=== PATIENT | male | born 1960 | race Caucasian/White ===

== ENCOUNTER → 2017-02-05 | Outpatient (CLI) | payer BC ==
[~2017-02-05] MED LIST: FLUO-88 PO; FLUT16SP12 NS; LEVO750T46 PO; LORA-326 PO; OMEG100016 PO; PRAV20TA44 PO; PROP60CA PO
== END ==
LOC: SS 20:00
DX: G47.33 Obstructive sleep apnea (adult) (pediatric) (principal)

== ENCOUNTER → 2017-02-17 | Outpatient (CLI) | payer BC | LOC: SS 20:00 | DX: G47.33 Obstructive sleep apnea (adult) (pediatric) (principal); G47.34 Idiopathic sleep related nonobstructive alveolar hypoventilation ==